=== PATIENT | male | born 1995 | race Hispanic/Latino ===

== ENCOUNTER 2016-12-11 21:27 | Emergency (ER) | payer OTHER ==
[2016-12-11 22:47] VITALS: BMI 26.4
[2016-12-11 22:51] VITALS: BP 137/71; RESP 18; TEMP 97.7
--- NOTE | 2016-12-11 22:56 | ED PDOC ---
Arrival/HPI - General Chief Complaint: Lower Extremity Problem/Injury Time Seen by Provider: 12/11/16 22:50 Historian: Patient - History of Present Illness Narrative History of Present Illness (Text): 12/11/16 22:52 21 y/o male, no significant pmh, nkda, last tetanus under 2 years ago, c/o lt. foot puncture wound through the rubber boot today. Aching pain, aggravated by walking, no numbness or tingling, no night sweat, no dizziness, no through and through wound, no palpitation, no pain medication taken at home. Past Medical History - Provider Review Nursing Documentation Reviewed: Yes - Past History Past History: No Previous - Infectious Disease Hx of Infectious Diseases: None - Tetanus Immunization Tetanus Immunization: Up to Date - Past Medical History Past Medical History: No Previous - Cardiac Hx Cardiac Disorders: No - Pulmonary Hx Respiratory Disorders: No - Neurological Hx Neurological Disorder: No - HEENT Hx HEENT Disorder: No - Renal Hx Renal Disorder: No - Endocrine/Metabolic Hx Endocrine Disorders: No - Hematological/Oncological Hx Blood Disorders: No - Integumentary Hx Dermatological Disorder: No - Musculoskeletal/Rheumatological Hx Musculoskeletal Disorders: No (L ANKLE INJURY) Hx Falls: No - Gastrointestinal Hx Gastrointestinal Disorders: Yes (BLOODY DIARRHEA,INTRACTABLE ABDOMINAL PAIN 8 -30-16) - Genitourinary/Gynecological Hx Genitourinary Disorders: Yes (URINARY FREQUENCY,POLYURIA) - Psychiatric Hx Psychophysiologic Disorder: No Hx Depression: No Hx Emotional Abuse: No Hx Physical Abuse: No Hx Substance Use: No - Past Surgical History Past Surgical History: No Previous - Surgical History Hx Appendectomy: Yes Other/Comment: recircumcision - Anesthesia Hx Anesthesia: Yes Hx Anesthesia Reactions: No Hx Malignant Hyperthermia: No - Suicidal Assessment Feels Threatened In Home Enviroment: No Family/Social History - Physician Review Nursing Documentation Reviewed: Yes Family/Social History: Unknown Family HX Smoking Status: Never Smoked Hx Alcohol Use: No Hx Substance Use: No Hx Substance Use Treatment: No Allergies/Home Meds Allergies/Adverse Reactions: Allergies No Known Allergies Allergy (Verified 11/22/16 14:16) Review of Systems - Review of Systems Constitutional: absent: Fatigue, Fevers Eyes: absent: Vision Changes ENT: absent: Hearing Changes Respiratory: absent: Sputum Cardiovascular: absent: Chest Pain Gastrointestinal: absent: Abdominal Pain, Nausea, Vomiting Skin: Other (puncture wound). absent: Rash, Pruritis, Skin Lesions, Laceration , Abscess, Ulcer, Cellulitis Neurological: absent: Headache, Dizziness, Focal Weakness, Gait Changes, Speech Changes, Facial Droop, Disequilibrium, Seizure, Other Physical Exam Vital Signs Reviewed: Yes Vital Signs Temp Pulse Resp BP Pulse Ox 12/12/16 01:09 72 18 99 12/11/16 22:49 97.7 F 76 18 137/71 98 Temperature: Afebrile Blood Pressure: Normal Pulse: Regular Respiratory Rate: Normal Appearance: Positive for: Well-Appearing, Non-Toxic, Comfortable Pain Distress: Moderate Mental Status: Positive for: Alert and Oriented X 3 - Systems Exam Head: Present: Atraumatic, Normocephalic Pupils: Present: PERRL Extroacular Muscles: Present: EOMI Conjunctiva: Present: Normal Mouth: Present: Moist Mucous Membranes Neck: Present: Normal Range of Motion Respiratory/Chest: Present: Clear to Auscultation, Good Air Exchange. No: Respiratory Distress, Accessory Muscle Use Cardiovascular: Present: Regular Rate and Rhythm, Normal S1, S2. No: Murmurs Abdomen: Present: Normal Bowel Sounds. No: Tenderness, Distention, Peritoneal Signs Back: Present: Normal Inspection Upper Extremity: Present: Normal Inspection. No: Cyanosis, Edema Lower Extremity: Present: Normal Inspection, Other (Lt. foot: visible less than 1mm puncture wound with no through and through, no laceration or abrasion, FROM without limitation, sensation intact,motor 5/5, +DPPT pulses, capillary refill< 2 seconds, neurovascular intact. ). No: Edema Neurological: Present: GCS=15, CN II-XII Intact, Speech Normal Skin: Present: Warm, Dry, Normal Color. No: Rashes Psychiatric: Present: Alert, Oriented x 3, Normal Insight, Normal Concentration Medical Decision Making ED Course and Treatment: 12/11/16 23:00 -I discussed the side effect and medical indication of the fluoroquinolones for this injury and covering the pseudomonas bacterial, side effect including possible achilles tendon rupture which he acknowledged and willing to accept the risk. -Ciprofloxacin and motrin ordered -wound irrigate with normal saline, clean with betadine, bacitracin and gauze dressing, -Crutches and osiris wrap ordered. 12/11/16 23:40 -xray show no fracture/dislocation/foreign bodies. -Discharge home with ciprofloxacin, bacitracin ointment, motrin, osiris wrap, crutches, non-weight bearing, follow up with you own pmd and band instrument maker within 2 days, return to the ER for any new or worsening signs or symptoms. - RAD Interpretation Radiology Orders: 12/11/16 22:56 FOOT LEFT 3 VIEWS ROUTINE [RAD] Stat normal left foot radiographs Story Editor: Radiologist - Medication Orders Current Medication Orders: Discontinued Medications Ciprofloxacin (Cipro) 500 mg PO STAT STA PRN Reason: Protocol Stop: 12/11/16 22:57 Last Admin: 12/12/16 00:22 Dose: 500 MG Ibuprofen (Motrin Tab) 800 mg PO STAT STA Stop: 12/11/16 22:57 Last Admin: 12/12/16 00:22 Dose: 800 MG MAR Pain/Vitals Document 12/12/16 00:22 YP (Rec: 12/12/16 00:22 YP [id number]) Pain Reassessment Is This A Pain ReAssessment? Yes Sleep Is patient sleeping during reassessment? No Presence of Pain Presence of Pain Yes - PA / [employer] OPERATOR / Resident Statement MD/DO has reviewed & agrees with the documentation as recorded. Disposition/Present on Arrival - Present on Arrival Any Indicators Present on Arrival: No History of DVT/PE: No History of Uncontrolled Diabetes: No Urinary Catheter: No History of Decub. Ulcer: No History Surgical Site Infection Following: None - Disposition Have Diagnosis and Disposition been Completed?: Yes Diagnosis: Puncture wound of foot Disposition: HOME/ ROUTINE Disposition Time: 23:04 Patient Plan: Discharge Condition: GOOD Additional Instructions: Discharge home with ciprofloxacin, bacitracin ointment, motrin, osiris wrap, crutches, non-weight bearing, follow up with you own pmd and band instrument maker within 2 days, return to the ER for any new or worsening signs or symptoms. Prescriptions: Bacitracin 1 appl TP BID #1 tube Ciprofloxacin [Cipro] 500 mg PO BID #16 tab Ibuprofen [Motrin Tab] 800 mg PO TID PRN #21 tab PRN Reason: Other Referrals: Bruna Jett DPM [Staff Provider] - Follow up with primary [facility] [place] - Follow up with primary Forms: WORK NOTE
[2016-12-12 01:10] VITALS: PULSE 72; O2SAT 99
--- NOTE | 2016-12-12 08:41 | RAD ---
PROCEDURE: Left Foot Radiographs. HISTORY: lt. foot puncture wound COMPARISON: None. FINDINGS: BONES: Normal. No fracture. JOINTS: Normal. SOFT TISSUES: Normal. OTHER FINDINGS: None. IMPRESSION: Normal left foot radiographs.
== END 2016-12-12 00:25 | disposition home or self-care (01) ==
LOC: ED 21:27
DX: S91.332A Puncture wound without foreign body, left foot, initial encounter (principal); X58.XXXA Exposure to other specified factors, initial encounter